=== PATIENT | female | born 1950 | race Caucasian/White ===

== ENCOUNTER 2016-11-10 05:55 | Emergency (ER) | payer MEDICARE, OTHER ==
[~2016-11-10] VITALS: Ht 160 cm; Wt 72.7 kg
[2016-11-10 05:58] VITALS: BP 181/89; PULSE 94; RESP 15; TEMP 98.5; O2SAT 96
[2016-11-10 06:09] VITALS: BP 175/94; PULSE 91; RESP 16; O2SAT 97
[2016-11-10] MEDS ORDERED: LOVA20TA PO (06:11)
[2016-11-10] MEDS ORDERED: TOPR50TA PO (06:11)
[2016-11-10] MEDS ORDERED: AMLO5TAB2 PO (06:11)
--- NOTE | 2016-11-10 06:15 | PD ---
HPI Chief Complaint: Flank/Kidney Pain Time Seen by Provider: 06:14 Travel History International Travel<30 days: No Contact w/Intl Traveler<30days: No Traveled to known affect area: No History of Present Illness HPI 66-year-old female came to the emergency room with history of right flank pain that started early this morning. Patient says the pain is 11 out of 10. She points the pain to her right CVA and then down to her right lower quadrant. No history of fever or chills. No history of nausea vomiting. No history of hematuria. Patient was told by her physician about 1-2 months ago that she has kidney stone that was incidentally diagnosed on x-ray. Patient did not take anything for pain. Vital signs are acceptable. [facility] Past Medical History Narrative Medical List of her past medical, surgical, social and family history was reviewed from the nursing note. High Cholesterol: Yes Diminished Hearing: Yes (LEFT SIDE) Hypertension: Yes Influenza Vaccination: Yes : 4 Para: 4 Past Surgical History Cholecystectomy: Yes Hysterectomy: Yes Mastectomy: Yes Tonsillectomy: Yes Social History Alcohol Use: No Tobacco Use: No Substance Use: No Allergies-Medications (Allergen,Severity, Reaction): Coded Allergies: Penicillins (Verified Allergy, Severe, Swelling, 11/10/16) Comments List of her allergies are reviewed from the nursing note. Reported Meds & Prescriptions Reported Meds & Active Scripts Active Zofran Odt (Ondansetron Odt) 4 Mg Tab 4 Mg SL Q6HR PRN Flomax (Tamsulosin HCl) 0.4 Mg Cap 0.4 Mg PO HS [place] (Hydrocodone-Acetaminophen) 5-325 mg Tab 1 Tab PO Q6H PRN Bactrim DS (Sulfamethoxazole-Trimethoprim) 800-160 Mg Tab 1 Tab PO BID Reported Lovastatin 20 Mg Tab 20 Mg PO DAILY Amlodipine (Amlodipine Besylate) 5 Mg Tab 5 Mg PO DAILY Toprol XL (Metoprolol Succinate) 50 Mg Tab 50 Mg PO DAILY Narrative Medication List of her home medications reviewed from the nursing note. Review of Systems Except as stated in HPI: all other systems reviewed are Neg Physical Exam Narrative GENERAL: Awake, alert, moderate distress SKIN: Focused skin assessment warm/dry. Right mastectomy HEAD: Atraumatic. Normocephalic. EYES: Pupils equal and round. No scleral icterus. No injection or drainage. ENT: No nasal bleeding or discharge. Mucous membranes pink and moist. NECK: Trachea midline. No JVD. CARDIOVASCULAR: Regular rate and rhythm. No murmur appreciated. RESPIRATORY: No accessory muscle use. Clear to auscultation. Breath sounds equal bilaterally. GASTROINTESTINAL: Abdomen soft, non-tender, nondistended. Hepatic and splenic margins not palpable. MUSCULOSKELETAL: No obvious deformities. No clubbing. No cyanosis. No edema. Scoliosis NEUROLOGICAL: Awake and alert. No obvious cranial nerve deficits. Motor grossly within normal limits. Normal speech. PSYCHIATRIC: Appropriate mood and affect; insight and judgment normal. Data Data Last Documented VS Vital Signs Date Time Temp Pulse Resp B/P (MAP) Pulse Ox O2 Delivery O2 Flow Rate FiO2 11/10/16 07:16 93 20 135/65 (88) 100 Room Air 11/10/16 05:58 98.5 Orders Orders Complete Blood Count With Diff (11/10/16 06:22) Basic Metabolic Panel (Bmp) (11/10/16 06:22) Urinalysis - C+S If Indicated (11/10/16 06:22) Ct Abd/Pel W/O Iv Contrast (11/10/16 06:22) Ecg Monitoring (11/10/16 06:22) Iv Access Insert/Monitor (11/10/16 06:22) Ketorolac Inj (Toradol Inj) (11/10/16 06:30) Ondansetron Inj (Zofran Inj) (11/10/16 06:30) Sodium Chloride 0.9% Flush (Ns Flush) (11/10/16 06:30) Sodium Chlor 0.9% 1000 Ml Inj (Ns 1000 M (11/10/16 06:22) Hydromorphone Pf Inj (Dilaudid Pf Inj) (11/10/16 06:30) Urine Culture (11/10/16 06:20) Nitrofurantoin Monohyd Macrocr (Macrobid (11/10/16 07:00) Labs Laboratory Tests Test 11/10/16 06:20 White Blood Count 5.1 TH/MM3 Red Blood Count 5.46 MIL/MM3 Hemoglobin 15.8 GM/DL Hematocrit 45.6 % Mean Corpuscular Volume 83.5 FL Mean Corpuscular Hemoglobin 28.8 PG Mean Corpuscular Hemoglobin Concent 34.5 % Red Cell Distribution Width 13.7 % Platelet Count 183 TH/MM3 Mean Platelet Volume 10.2 FL Neutrophils (%) (Auto) 52.9 % Lymphocytes (%) (Auto) 31.6 % Monocytes (%) (Auto) 11.7 % Eosinophils (%) (Auto) 3.1 % Basophils (%) (Auto) 0.7 % Neutrophils # (Auto) 2.7 TH/MM3 Lymphocytes # (Auto) 1.6 TH/MM3 Monocytes # (Auto) 0.6 TH/MM3 Eosinophils # (Auto) 0.2 TH/MM3 Basophils # (Auto) 0.0 TH/MM3 CBC Comment DIFF FINAL Differential Comment Urine Color LIGHT-YELLOW Urine Turbidity CLEAR Urine pH 7.5 Urine Specific [place] 1.009 Urine Protein NEG mg/dL Urine Glucose (UA) NEG mg/dL Urine Ketones NEG mg/dL Urine Occult Blood NEG Urine Nitrite NEG Urine Bilirubin NEG Urine Urobilinogen LESS THAN 2.0 MG/DL Urine Leukocyte Esterase MOD Urine RBC 1 /hpf Urine WBC 11 /hpf Urine Bacteria RARE /hpf Microscopic Urinalysis Comment CULTURE INDICATED Blood Urea Nitrogen 14 MG/DL Creatinine 0.76 MG/DL Random Glucose 136 MG/DL Calcium Level 8.6 MG/DL Sodium Level 139 MEQ/L Potassium Level 4.0 MEQ/L Chloride Level 104 MEQ/L Carbon Dioxide Level 25.5 MEQ/L Anion Gap 10 MEQ/L Estimat Glomerular Filtration Rate 76 ML/MIN [facility] Medical Decision Making Medical Screen Exam Complete: Yes Emergency Medical Condition: Yes Medical Record Reviewed: Yes Differential Diagnosis Renal colic, pyelonephritis, musculoskeletal pain Narrative Course 6:36 AM patient was given pain medication. Awaiting for the blood test and the CAT scan to be done and resulted. She is getting 1 L of IV fluid bolus as well. 6:52 AM CBC is within normal limit. UA was suggestive of UTI. Patient was given a dose of Macrobid. Electrolytes are pending. CT scan is pending. Patient will be signed over to the oncoming ER physician. Procedures EKG Prior to Arrival: No Scripts Ondansetron Odt (Zofran Odt) 4 Mg Tab 4 MG SL Q6HR Y for Nausea/Vomiting, #12 TAB 0 Refills Prov: Rodolfo Parrish MD 11/10/16 Tamsulosin (Flomax) 0.4 Mg Cap 0.4 MG PO HS for Manage Prostate Problems, #10 CAP 0 Refills Prov: Rodolfo Parrish MD 11/10/16 Hydrocodone-Acetaminophen ([place]) 5-325 mg Tab 1 TAB PO Q6H Y for PAIN, #30 TAB Prov: Rodolfo Parrish MD 11/10/16 Sulfamethoxazole-Trimethoprim (Bactrim DS) 800-160 Mg Tab 1 TAB PO BID for Infection, #14 TAB Prov: Rodolfo Parrish MD 11/10/16 Angel Zavala MD Nov 10, 2016 06:15
[2016-11-10] MEDS ORDERED: SODIUM CHLOR 0.9% 1000 ML INJ 1,000 ML IV ONE (06:22)
[2016-11-10] MEDS ORDERED: ONDANSETRON HCL 4 MG/2 ML VIAL IVP ONE (06:30)
[2016-11-10] MEDS ORDERED: SODIUM CHLORIDE 0.9% FLUSH 10 ML FLUSH IVF PRN (06:30)
[2016-11-10] MEDS ORDERED: HYDROmorphone HCL PF 1 MG/ML VIAL IVS ONE (06:30)
[2016-11-10] MEDS ORDERED: KETOROLAC TROMETHAMINE 30 MG/ML (IVP) VIAL IVP ONE (06:30)
[2016-11-10 06:45] LABS: AUTOMATED NEUTROPHIL # 2.7 TH/MM3 (1.8-7.7); BASOPHIL % 0.7 % (0.0-2.0); EOSINOPHIL # 0.2 TH/MM3 (0-0.4); EOSINOPHIL % 3.1 % (0.0-4.0); HEMATOCRIT 45.6 % (35.0-46.0); HEMO FLAGS DIFF FINAL; LYMPH % 31.6 % (9.0-44.0); LYMPHOCYTE # 1.6 TH/MM3 (1.0-4.8); MEAN CELL VOLUME 83.5 FL (80.0-100.0); MEAN CORPUSCULAR HEMOGLOBIN 28.8 PG (27.0-34.0); MEAN CORPUSCULAR HGB CONC 34.5 % (32.0-36.0); MONO % 11.7 % (0.0-8.0); NEUT % 52.9 % (16.0-70.0); PLATELET COUNT 183 TH/MM3 (150-450); RED BLOOD COUNT 5.46 MIL/MM3 (4.00-5.30); RED CELL DISTRIBUTION WIDTH 13.7 % (11.6-17.2); WHITE BLOOD COUNT 5.1 TH/MM3 (4.0-11.0)
[2016-11-10 06:49] LABS: BACTERIA, URINE RARE /hpf; BLOOD, URINE NEG (NEG); COMMENT (UR) CULTURE INDICATED; CULTURE IF INDICATED CULTURE INDICATED; GLUCOSE,URINE NEG (NEG); KETONE, URINE NEG (NEG); NITRITE,URINE NEG (NEG); PH, URINE 7.5 (5.0-8.5); URINE COLOR LIGHT-YELLOW (YELLW/STRAW)
[2016-11-10 07:00] LABS: BICARBONATE 25.5 MEQ/L (21.0-32.0)
[2016-11-10] MEDS ORDERED: NITROFURANTOIN MONOHYD MACROCR 100 MG CAP PO ONE (07:00)
[2016-11-10 07:16] VITALS: BP 135/65; PULSE 93; RESP 20; O2SAT 100
--- NOTE | 2016-11-10 07:26 | RADRPT ---
EXAM DATE/TIME: 11/10/2016 06:50 [place] COMPARISON: No previous studies available for comparison. INDICATIONS : Right flank pain. ORAL CONTRAST: No oral contrast ingested. RADIATION DOSE: 7.89 CTDIvol (mGy) MEDICAL HISTORY : Hypertension. SURGICAL HISTORY : Hysterectomy. Cholecystectomy.Mastectomy ENCOUNTER: Initial ACUITY: 1 day PAIN SCALE: 5/10 LOCATION: Right flank TECHNIQUE: Volumetric scanning of the abdomen and pelvis was performed. Using automated exposure control and ad justment of the mA and/or kV according to patient size, radiation dose was kept as low as reasonably achievable to obtain optimal diagnostic quality images. DICOM format image data is available electro nically for review and comparison. FINDINGS: LOWER LUNGS: The visualized lower lungs are clear. LIVER: Homogeneous density with 2 low-density lesions in the left lobe measuring 7 mm and 9 mm. Both have de nsity measurements characteristic of cysts. Patient is post cholecystectomy clips in the gallbladder fossa. There is no dilation of the intrahepatic biliary tree. SPLEEN: Normal size without lesion. PANCREAS: Within normal limits. KIDNEYS: Normal in size and shape. There is no mass. There is a 5 mm nonobstructing stone in the right lower pole collecting system. Mild hydronephrosis and hydroureter is present on the right caused by a 3 mm stone in the right distal ureter just proximal to the ureterovesical junction. A 6 mm nonobstructing stone is present in the left upper pole collecting system. ADRENAL GLANDS: Within normal limits. VASCULAR: There is no aortic aneurysm. There is mild atherosclerotic disease. BOWEL/MESENTERY: The stomach, small bowel, and colon demonstrate no acute abnormality. There is no free intraperitone al air or fluid. A small hiatal hernia is present. ABDOMINAL WALL: Within normal limits. RETROPERITONEUM: There is no lymphadenopathy. BLADDER: No wall thickening or mass. REPRODUCTIVE: Uterus is absent. INGUINAL: There is no lymphadenopathy or hernia. MUSCULOSKELETAL: Degenerative changes of the lumbar spine with mild dextroscoliosis. CONCLUSION: 1. There is a 3 mm stone in the distal right ureter just proximal to the ureterovesical junction resu lting in mild right hydronephrosis and hydroureter. 2. There is a 6 mm nonobstructing left renal stone and 5 mm nonobstructing right renal stone. 3. Nonacute findings include hepatic cysts, mild atherosclerotic disease, and small hiatal hernia. Rosendo Hernandez MD on November 10, 2016 at 7:19 Board Certified Radiologist. This report was verified electronically.
--- NOTE | 2016-11-10 07:43 | PD ---
Physical Exam Narrative Patient was seen by ED physician and signed out to me. Data Data Last Documented VS Vital Signs Date Time Temp Pulse Resp B/P Pulse Ox O2 Delivery O2 Flow Rate FiO2 11/10/16 07:16 93 20 135/65 100 Room Air 11/10/16 05:58 98.5 Orders Complete Blood Count With Diff (11/10/16 06:22) Basic Metabolic Panel (Bmp) (11/10/16 06:22) Urinalysis - C+S If Indicated (11/10/16 06:22) Ct Abd/Pel W/O Iv Contrast (11/10/16 06:22) Ecg Monitoring (11/10/16 06:22) Iv Access Insert/Monitor (11/10/16 06:22) Ketorolac Inj (Toradol Inj) (11/10/16 06:30) Ondansetron Inj (Zofran Inj) (11/10/16 06:30) Sodium Chloride 0.9% Flush (Ns Flush) (11/10/16 06:30) Sodium Chlor 0.9% 1000 Ml Inj (Ns 1000 M (11/10/16 06:22) Hydromorphone Pf Inj (Dilaudid Pf Inj) (11/10/16 06:30) Urine Culture (11/10/16 06:20) Nitrofurantoin Monohyd Macrocr (Macrobid (11/10/16 07:00) Labs Laboratory Tests Test 11/10/16 06:20 White Blood Count 5.1 TH/MM3 Red Blood Count 5.46 MIL/MM3 Hemoglobin 15.8 GM/DL Hematocrit 45.6 % Mean Corpuscular Volume 83.5 FL Mean Corpuscular Hemoglobin 28.8 PG Mean Corpuscular Hemoglobin 34.5 % Concent Red Cell Distribution Width 13.7 % Platelet Count 183 TH/MM3 Mean Platelet Volume 10.2 FL Neutrophils (%) (Auto) 52.9 % Lymphocytes (%) (Auto) 31.6 % Monocytes (%) (Auto) 11.7 % Eosinophils (%) (Auto) 3.1 % Basophils (%) (Auto) 0.7 % Neutrophils # (Auto) 2.7 TH/MM3 Lymphocytes # (Auto) 1.6 TH/MM3 Monocytes # (Auto) 0.6 TH/MM3 Eosinophils # (Auto) 0.2 TH/MM3 Basophils # (Auto) 0.0 TH/MM3 CBC Comment DIFF FINAL Differential Comment Urine Color LIGHT-YELLOW Urine Turbidity CLEAR Urine pH 7.5 Urine Specific [place] 1.009 Urine Protein NEG mg/dL Urine Glucose (UA) NEG mg/dL Urine Ketones NEG mg/dL Urine Occult Blood NEG Urine Nitrite NEG Urine Bilirubin NEG Urine Urobilinogen LESS THAN 2.0 MG/DL Urine Leukocyte Esterase MOD Urine RBC 1 /hpf Urine WBC 11 /hpf Urine Bacteria RARE /hpf Microscopic Urinalysis Comment CULTURE INDICATED Sodium Level 139 MEQ/L Potassium Level 4.0 MEQ/L Chloride Level 104 MEQ/L Carbon Dioxide Level 25.5 MEQ/L Anion Gap 10 MEQ/L Blood Urea Nitrogen 14 MG/DL Creatinine 0.76 MG/DL Estimat Glomerular Filtration 76 ML/MIN Rate Random Glucose 136 MG/DL Calcium Level 8.6 MG/DL MDM Supervised Visit with DIONNA: No Interpretation(s) Last Impressions Abdomen/Pelvis CT 11/10/16 06 Signed Impressions: Service Date/Time: , November 10, 2016 06:50 - CONCLUSION: 1. There is a 3 mm stone in the distal right ureter just proximal to the ureterovesical junction resulting in mild right hydronephrosis and hydroureter. 2. There is a 6 mm nonobstructing left renal stone and 5 mm nonobstructing right renal stone. 3. Nonacute findings include hepatic cysts, mild atherosclerotic disease, and small hiatal hernia. Rosendo Hernandez MD 7:41 AM. CBC within normal limit. BMP within normal limit. UA is positive for WBC and rare bacteria. Diagnosis Primary Impression: Nephrolithiasis Additional Impression: UTI (urinary tract infection) Qualified Code: N30.00 - Acute cystitis without hematuria Patient Instructions: General Instructions Additional Instruction: Take medication as directed. Follow-up with urologist. Return if intractable pain, fever, persistent vomiting. Med/Other Pt SpecificInfo: Prescription(s) given Scripts Ondansetron Odt (Zofran Odt)4 Mg Tab4 Mg SL Q6HR PRN (Nausea/Vomiting) #12 TAB Ref 0 Prov:Rodolfo Parrish MD 11/10/16 Tamsulosin (Flomax)0.4 Mg Cap0.4 Mg PO HS #10 CAP Ref 0 Prov:Rodolfo Parrish MD 11/10/16 Hydrocodone-Acetaminophen ([place])5-325 mg Tab1 Tab PO Q6H PRN (PAIN) #30 TAB Prov:Rodolfo Parrish MD 11/10/16 Sulfamethoxazole-Trimethoprim (Bactrim DS)800-160 Mg Tab1 Tab PO BID #14 TAB Prov:Rodolfo Parrish MD 11/10/16 Disposition: 01 DISCHARGE HOME Condition: Stable Rodolfo Parrish MD Nov 10, 2016 07:42
[2016-11-10] MEDS ORDERED: NORC5TAB PO (07:46)
[2016-11-10] MEDS ORDERED: ZOFR4TAB3 SL (07:46)
[2016-11-10] MEDS ORDERED: TAMS5CAP PO (07:46)
[2016-11-10] MEDS ORDERED: BACT800T5 PO (07:46)
== END 2016-11-10 08:36 | disposition home or self-care (01) ==
LOC: NEPE 05:55
DX: N20.0 Calculus of kidney (principal); N39.0 Urinary tract infection, site not specified; K76.89 Other specified diseases of liver; K44.9 Diaphragmatic hernia without obstruction or gangrene; E78.00 Pure hypercholesterolemia, unspecified; I10 Essential (primary) hypertension; Z88.0 Allergy status to penicillin; Z79.899 Other long term (current) drug therapy
CPT/HCPCS: 74176; 80048; 81001; 85025; 87086; 96361; 96374; 96375; 99285; J1170; J1885; J2405; J7030